=== PATIENT | male | born 1990 | race African-American/Black ===

== ENCOUNTER 2023-10-26 10:16 | Outpatient (RCR) | payer BC, SELFPAY | END 2024-02-23 23:59 | disposition home or self-care (01) | PROVIDERS: PCP Family Medicine; Visit Provider Family Medicine | DX: S46.219A Strain of muscle, fascia and tendon of other parts of biceps, unspecified arm, initial encounter (principal); R29.898 Other symptoms and signs involving the musculoskeletal system; Z51.89 Encounter for other specified aftercare | CPT/HCPCS: 97110; 97162 ==